=== PATIENT | female | born 1975 | race Caucasian/White ===

== ENCOUNTER 2017-04-28 09:13 | Emergency (ER) | payer OTHER ==
[2017-04-28 09:35] VITALS: BP 141/97
--- NOTE | 2017-04-28 10:00 | UC ---
Complaint Female HPI - HPI Summary HPI Summary: Pt presents with urinary frequency, burning, bladder pressure, and lower abdominal "fullness". She tells me that these symptoms began over the last 2 days. She isn't sure if this is a UTI or if this is something else. She has had small BMs with hard stools that last 4 days and thinks she is constipated. Also says that she has a history of uterine fibroids and ovarian cysts - wondering if this could be those as well. Denies fever, chills, SOB, chest pain, n/v/d, hematuria, vaginal pain/discharge/odor. - History Of Current Complaint Chief Complaint: UCGU Stated Complaint: URINARY COMPLAINT Time Seen by Provider: 04/28/17 10:00 Hx Obtained From: Patient Hx Last Menstrual Period: doesnt get due to control Onset/Duration: Gradual Onset Timing: Constant Severity Initially: Moderate Severity Currently: Moderate Pain Intensity: 5 Pain Scale Used: 0-10 Numeric - Allergies/Home Medications Allergies/Adverse Reactions: Allergies Allergy/AdvReac Type Severity Reaction Status Date / Time hydrocodone Allergy Tachycardia Verified 04/28/17 09:48 metoclopramide [From Reglan] Allergy See Comment Verified 04/28/17 09:48 oxycodone Allergy Tachycardia Verified 04/28/17 09:48 Home Medications: Home Medications Calcium Carbonate/Vitamin D3 [Calcium 500 + Vit D Caplet] 1 tab PO DAILY [History Confirmed 04/28/17] Cyanocobalamin (Vitamin B-12) [Vitamin B-12] 1 tab PO DAILY 04/28/17 [History Confirmed 04/28/17] LevoCETirizine TAB (NF) [Xyzal TAB (NF)] 1 tab PO DAILY 04/28/17 [History Confirmed 04/28/17] Norethindrone AC-Eth Estradiol [Junel 1 mg-20 Mcg Tablet] 1 tab PO DAILY [History Confirmed 04/28/17] PMH/Surg Hx/FS Hx/Imm Hx Previously Healthy: Yes - Surgical History Surgical History: None Surgery Procedure, Year, and Place: gallbladder removed - Family History Known Family History: Positive: Hypertension - Social History Occupation: Employed Full-time Lives: With Family Alcohol Use: Rare Substance Use Type: None Smoking Status (MU): Never Smoked Tobacco - Immunization History Most Recent Tetanus Shot: UNK Review of Systems Constitutional: Negative Skin: Negative Respiratory: Negative Cardiovascular: Negative Gastrointestinal: Other - Constipation Genitourinary: Dysuria, Frequency, Urgency Neurological: Negative Psychological: Negative All Other Systems Reviewed And Are Negative: Yes Physical Exam - Summary Physical Exam Summary: GENERAL: NAD. WDWN. No pain distress. SKIN: No rashes, sores, ulcers, masses, lesions. NECK: Supple. Nontender. No lymphadenopathy. CHEST: CTAB. No r/r/w. No accessory muscle use. Breathing comfortably and in no distress. CV: RRR. Without m/r/g. Pulses intact. Brisk cap refill. ABDOMEN: Soft. NTTP. No distention or guarding. No organomegaly. No CVA tenderness. Bowel sounds present x4. NEURO: Alert. CN II-XII grossly intact. PSYCH: Age appropriate behavior. Triage Information Reviewed: Yes Vital Signs: Initial Vital Signs Temp 98.5 F 04/28/17 09:30 Pulse 77 04/28/17 09:30 Resp 20 04/28/17 09:30 BP 141/97 04/28/17 09:30 Pulse Ox 100 04/28/17 09:30 Complaint Female Dx - Course Course Of Treatment: UA with 1+ leuks. Will treat for UTI with keflex and have her take colace and/or miralax OTC for her constipation. If symptoms worsen - go to ED. If not better, f/u with PCP. - Differential Dx/Diagnosis Provider Diagnoses: UTI. Constipation Discharge - Sign-Out/Discharge Documenting (check all that apply): Discharge - Discharge Plan Condition: Stable Disposition: HOME Prescriptions: Cephalexin CAP* [Keflex CAP*] 500 mg PO BID #10 cap Docusate CAP* [Colace Cap*] 100 mg PO BID #14 cap Patient Education Materials: Constipation (ED), Urinary Tract Infection in Women (ED) Forms: *Work Release Referrals: Carlos Smith MD [Primary Care Provider] - Additional Instructions: If you develop a fever, shortness of breath, chest pain, new or worsening symptoms - please call your PCP or go to the ED. Your blood pressure was high at todays visit. Please see your primary provider within 4 weeks for recheck and re-evaluation. - Billing Disposition and Condition Condition: STABLE Disposition: HOME
== END 2017-04-28 10:20 | disposition home or self-care (01) ==
LOC: UCEAST 09:13
DX: N39.0 Urinary tract infection, site not specified (principal); B96.20 Unspecified Escherichia coli [E. coli] as the cause of diseases classified elsewhere; K59.00 Constipation, unspecified; Z88.5 Allergy status to narcotic agent
CPT/HCPCS: 81003; 87077; 87086; 87186; 99212; G0463